=== PATIENT | female | born 1960 | race African-American/Black ===

== ENCOUNTER 2016-06-14 16:45 | Emergency (ER) | payer BC ==
[~2016-06-14] VITALS: Ht 165.1 cm; Wt 86.2 kg
[2016-06-14 16:50] VITALS: BP 123/73
[2016-06-14] MEDS ORDERED: AMOX1TAB61 PO (17:18)
[2016-06-14] MEDS ORDERED: PRED20TA PO (17:18)
--- NOTE | 2016-06-14 17:19 | PHYS DOC ---
Past Medical History Past Medical History: Hypertension, Hypothyroid Past Surgical History: Appendectomy, Tubal ligation, Other Additional Past Surgical Histo: bilateral hip replacement, hernia repair Alcohol Use: None Drug Use: None Adult General Chief Complaint Chief Complaint: SORE THROAT [facility] HPI Patient is a 56 year old female presents emergency department stating that for the last week she has had a cough congestion with drainage down the back of her throat. She states that she thinks she's been having fever can she's been having chills. She's been taken NyQuil [id number] without any relief. She states that she's also had a productive cough this been yellow to greenish in color. She states she's had some shortness of air although she is able to talk in full 4 word or more sentences. Review of Systems Review of Systems Constitutional: fever Eyes: Denies change in visual acuity, redness, or eye pain [] HENT: nasal congestion and sore throat [] Respiratory: cough and shortness of breath [] Cardiovascular: No additional information not addressed in HPI [] GI: Denies abdominal pain, nausea, vomiting, bloody stools or diarrhea [] : Denies dysuria or hematuria [] Musculoskeletal: Denies back pain or joint pain [] Integument: Denies rash or skin lesions [] Neurologic: Denies headache, focal weakness or sensory changes [] Allergies Allergies Allergies Coded Allergies Type Severity Reaction Last Updated Verified No Known Drug Allergies 11/08/14 No Physical Exam Physical Exam Constitutional: Well developed, well nourished, no acute distress, non-toxic appearance. [] HENT: Normocephalic, atraumatic, bilateral external ears normal, oropharynx moist, no oral exudates, nose normal. Bilateral tympanic membranes appear to be normal. No sinus tenderness noted over the frontal and maxillary area. Patient appears to have postnasal drip. Patient's with no lymphadenopathy noted. Eyes: PERRLA, EOMI, conjunctiva normal, no discharge. [] Neck: Normal range of motion, no tenderness, supple, no stridor. [] Cardiovascular:Heart rate regular rhythm, no murmur [] Lungs & Thorax: Bilateral breath sounds clear to auscultation [] Skin: Warm, dry, no erythema, no rash. [] Back: No tenderness Extremities: No tenderness, no cyanosis, no clubbing, ROM intact, no edema. [] Neurologic: Alert and oriented X 3, normal motor function, normal sensory function, no focal deficits noted. [] Psychologic: Affect normal, judgement normal, mood normal. [] Current Patient Data Vital Signs Vital Signs Date Time Temp Pulse Resp B/P Pulse Ox O2 Delivery O2 Flow Rate FiO2 06/14/16 16:50 98.0 99 18 99 Room Air 98.0 EKG EKG [] Radiology/Procedures Radiology/Procedures [] Course & Med Decision Making Course & Med Decision Making Pertinent Labs and Imaging studies reviewed. (See chart for details) Rapid strep negative. Patient will be encouraged to drink plenty of fluids water , Gatorade, propel. Patient was encouraged to take Tylenol or ibuprofen for fever chills generalized body aches and discomfort. She is also recommended take Mucinex DM to help with congestion and cough. Patient will be placed on Augmentin 1 tablet twice day for the next 10 days. Patient is also requesting a work note. She'll also be provided on prednisone. Patient will be discharged home in stable condition since symptoms to return back to emergency department as been provided. Patient agrees with discharge instructions treatment regimens and follow-up recommendations. [] Dragon Disclaimer Dragon Disclaimer This electronic medical record was generated, in whole or in part, using a voice recognition dictation system. Departure Departure Impression: Primary Impression: Upper respiratory infection Disposition: 01 HOME, SELF-CARE Condition: STABLE Referrals: CASEY MIRANDA MD (PCP) Patient Instructions: Upper Respiratory Infection, Adult, [id number] Additional Instructions: Activity as tolerated. Drink plenty of fluids. Tylenol or ibuprofen for fever chills or generalized body aches and discomfort. Medication as prescribed. You may also take Mucinex DM as directed by manufacture to help with congestion and cough Follow-up through primary care physician in the next 3-5 days. Return back to emergency prior signs symptoms of become worse. Scripts Prednisone 20 Mg Ekufth25 Mg PO DAILY #10 TAB Prov:HOWARD CHIU MACHINIST BRAKE 06/14/16 Amoxicillin/Potassium Clav (Augmentin 875-125 Tablet)1 Each Tablet1 Tab PO BID # 20 TAB Prov:HOWARD CHIU MACHINIST BRAKE 06/14/16 HOWARD CHIU MACHINIST BRAKE Jun 14, 2016 17:19
[2016-06-15 08:07] LABS: NEGATIVE OBC STREP NEG; POSITIVE OBC STREP POS
== END 2016-06-14 17:29 | disposition home or self-care (01) ==
LOC: ER 16:45
DX: J06.9 Acute upper respiratory infection, unspecified (principal); I10 Essential (primary) hypertension; E03.9 Hypothyroidism, unspecified; Z90.49 Acquired absence of other specified parts of digestive tract; Z98.51 Tubal ligation status; Z96.643 Presence of artificial hip joint, bilateral
CPT/HCPCS: 87070; 87880; 99284

== ENCOUNTER 2019-08-01 14:11 | Emergency (ER) | payer BC, OTHER ==
[~2019-08-01] VITALS: Ht 165.1 cm; Wt 90.0 kg
[~2019-08-01 14:11] MED LIST: AMOX1TAB61 PO; PRED20TA PO
[2019-08-01 14:28] VITALS: BP 131/79
[2019-08-01] MEDS ORDERED: NAPROXEN 500 MG TABLET PO STA (14:46)
[2019-08-01] MEDS ORDERED: DIPH,PERTUSS(ACELL),TET VAC/PF 0.5 ML SYRINGE. VAX IM ONE (15:00)
[2019-08-01] MEDS ORDERED: HYDROcodone/APAP 5/325MG 1 TAB TABLET PO ONE (15:00)
--- NOTE | 2019-08-01 15:24 | RAD ---
Exam performed: Left hand 3 views. Indication: Left hand pain, status post fall. Date of Service: 08/01/2019 Comparison: None available Discussion: PA, oblique lateral radiographs of the hand reveal the osseous structures to be intact and well aligned. The joint spaces are well-preserved. The articular margins are smooth. No soft tissue swelling or foreign bodies detected. Impression: Radiographically normal left hand. Electronically signed by: Juliette Greene MD (08/01/2019 3:21 PM) [id number]
--- NOTE | 2019-08-01 15:32 | PHYS DOC ---
Past Medical History Past Medical History: Hypertension, Hypothyroid Past Surgical History: Appendectomy, Tubal ligation, Other Additional Past Surgical Histo: bilateral hip replacement, hernia repair Smoking Status: Former Smoker Alcohol Use: None Drug Use: None Adult General Chief Complaint Chief Complaint: FINGER INJURY HPI HPI Patient is a 59 year old female who presents to the ED today complaining of left pinky finger and ring finger pain that began after she fell. Patient reports talking on the cell phone while going down some steps when she fell. Patient denies any loss of consciousness, denies hitting her head on the ground. Reports 9 out of 10 sharp intermittent left pinky finger and ring finger pain. Reports most of the pain is on touching the fingers. Denies any neck pain, denies any back pain. Review of Systems Review of Systems Constitutional: Denies fever or chills [] Musculoskeletal: Reports left pinky finger pain and ring finger pain Integument: Denies rash or skin lesions [] Neurologic: Denies headache, focal weakness or sensory changes [] All other systems were reviewed and found to be within normal limits, except as documented in this note. Current Medications Current Medications Current Medications Medications (Trade) Dose Ordered Sig/Gaye Start Time Stop Time Status Last Admin Dose Admin Acetaminophen/ Hydrocodone Bitart (Lortab 5/325) 1 tab 1X ONCE 08/01/19 15:00 08/01/19 15:01 DC 08/01/19 15:21 1 TAB Diphtheria/ Tetanus/Acell Pertussis (ADACEL TDap SYRINGE) 0.5 ml ONCE ONCE 08/01/19 15:00 08/01/19 15:01 DC 08/01/19 15:22 0.5 ML Naproxen (Naprosyn) 500 mg 1X STAT 08/01/19 14:46 08/01/19 14:50 DC 08/01/19 15:20 500 MG Allergies Allergies Allergies Coded Allergies Type Severity Reaction Last Updated Verified No Known Drug Allergies 11/08/14 No Physical Exam Physical Exam Constitutional: Well developed, well nourished, no acute distress, non-toxic appearance. [] Skin: Warm, dry, no erythema, no rash. [] Back: No tenderness, no CVA tenderness. [] Extremities: Left hand and fingers with no obvious deformity, bruising noted on the left pinky finger PIP joint ventral aspect. Tenderness diffusely on the left pinky finger and ring finger. Full range of motion to the left fingers, adequate radial, medial, ulnar sensation to the left hand. +2 left radial pulse. Cap refill less than 2 seconds the left fingers. Neurologic: Alert and oriented X 3, normal motor function, normal sensory function, no focal deficits noted. [] Psychologic: Affect normal, judgement normal, mood normal. [] Current Patient Data Vital Signs Vital Signs Date Time Temp Pulse Resp B/P (MAP) Pulse Ox O2 Delivery O2 Flow Rate FiO2 08/01/19 14:28 98.2 85 16 131/79 (96) 98 Room Air 98.2 EKG EKG [] Radiology/Procedures Radiology/Procedures []PROCEDURE: HAND LEFT 3V Exam performed: Left hand 3 views. Indication: Left hand pain, status post fall. Date of Service: 08/01/2019 Comparison: None available Discussion: PA, oblique lateral radiographs of the hand reveal the osseous structures to be intact and well aligned. The joint spaces are well-preserved. The articular margins are smooth. No soft tissue swelling or foreign bodies detected. Impression: Radiographically normal left hand. Electronically signed by: Juliette Greene MD (08/01/2019 3:21 PM) [id number] DICTATED and SIGNED BY: JULIETTE GREENE MD DATE: 08/01/19 1521 Course & Med Decision Making Course & Med Decision Making Pertinent Labs and Imaging studies reviewed. (See chart for details) This is a 59-year-old female patient presented to the ED today with left pinky finger and ring finger injury, patient fell down. Left hand x-rays are negative for any acute findings. Tetanus is updated. Ice elevation encouraged. Follow-up with PCP in 1 to 2 weeks or orthopedic doctor provided. Dragon Disclaimer Dragon Disclaimer This electronic medical record was generated, in whole or in part, using a voice recognition dictation system. Departure Departure Impression: Primary Impression: Sprain of left index finger Additional Impression: Fall down steps Disposition: 01 HOME, SELF-CARE Condition: STABLE Referrals: NON,STAFF (PCP) follow up in 1-2 weeks Patient Instructions: Finger Sprain, [id number] Additional Instructions: You were evaluated in the emergency room for left pinky finger and ring finger injuries, your left hand x-rays are negative for any acute findings. Try to ice and elevate the extremity. You can take [id number] pain relievers as needed. Follow-up with your own doctor on the provided orthopedic doctor in 1 to 2 weeks Problem Qualifiers Primary Impression: Sprain of left index finger Encounter type: initial encounter Sprain of finger site: interphalangeal joint Qualified Codes: S63.631A - Sprain of interphalangeal joint of left index finger, initial encounter Additional Impression: Fall down steps Encounter type: initial encounter Qualified Codes: W10.8XXA - Fall (on) (from) other stairs and steps, initial encounter MARCOS PARK APRN Aug 01, 2019 15:32
== END 2019-08-01 15:40 | disposition home or self-care (01) ==
LOC: ER 14:11
DX: S63.631A Sprain of interphalangeal joint of left index finger, initial encounter (principal); I10 Essential (primary) hypertension; E03.9 Hypothyroidism, unspecified; Z87.891 Personal history of nicotine dependence; W10.8XXA Fall (on) (from) other stairs and steps, initial encounter; Y93.89 Activity, other specified; Y92.89 Other specified places as the place of occurrence of the external cause; Y99.8 Other external cause status
CPT/HCPCS: 73130; 90471; 90715; 99283